=== PATIENT | female | born 1990 | race Caucasian/White ===

== ENCOUNTER 2018-07-02 15:05 | Emergency (ER) | payer SELFPAY ==
[~2018-07-02] VITALS: Ht 165.1 cm; Wt 79.5 kg
[2018-07-02 15:12] VITALS: Ht 165.1 cm; Wt 79.5 kg
[2018-07-02] MEDS ORDERED: SYNTHROID25 MCG PO (15:14)
[2018-07-02] MEDS ORDERED: TORADOL10 MG PO (18:03)
[2018-07-02] MEDS ORDERED: CLEOCIN HCL300 MG PO (18:03)
[2018-07-02 18:40] VITALS: BP 105/54
== END 2018-07-02 18:40 | disposition home or self-care (01) ==
LOC: D.ER 15:05
DX: L02.416 Cutaneous abscess of left lower limb (principal); F17.200 Nicotine dependence, unspecified, uncomplicated

== ENCOUNTER 2018-07-19 17:47 | Emergency (ER) | payer SELFPAY ==
[~2018-07-19] VITALS: Ht 165.1 cm; Wt 79.5 kg
[~2018-07-19 17:47] MED LIST: CLEOCIN HCL300 MG PO; SYNTHROID25 MCG PO; TORADOL10 MG PO
[2018-07-19 18:24] VITALS: Ht 165.1 cm; Wt 79.5 kg
[2018-07-19 19:07] LABS: APPEARANCE CLEAR (CLEAR); BILIRUBIN NEGATIVE (NEGATIVE); COLOR YELLOW (YELLOW); GLUCOSE NEGATIVE (NEGATIVE); KETONE NEGATIVE (NEGATIVE); NITRITE NEGATIVE (NEGATIVE); PROTEIN NEGATIVE (NEGATIVE); SPECIFIC GRAVITY 1.015 (1.005-1.020); UROBILINOGEN NORMAL (NORMAL)
[2018-07-19 19:08] LABS: HCG URINE NEGATIVE (NEGATIVE)
[2018-07-19] MEDS ORDERED: ZOFRAN4 MG PO (19:56)
[2018-07-19 20:21] VITALS: BP 128/89
== END 2018-07-19 20:22 | disposition home or self-care (01) ==
LOC: D.ER 17:47
PROVIDERS: Emergency Medicine
DX: R51 Headache (principal); R11.0 Nausea; R42 Dizziness and giddiness; F17.200 Nicotine dependence, unspecified, uncomplicated

== ENCOUNTER 2018-11-17 14:25 | Emergency (ER) | payer SELFPAY ==
[~2018-11-17] VITALS: Ht 165.1 cm; Wt 77.3 kg
[~2018-11-17 14:25] MED LIST changes: +ZOFRAN4 MG PO
[2018-11-17 14:29] VITALS: Ht 165.1 cm; Wt 77.3 kg
[2018-11-17 15:31] VITALS: BP 124/72
== END 2018-11-17 15:32 | disposition home or self-care (01) ==
LOC: D.ER 14:25
DX: S30.861A Insect bite (nonvenomous) of abdominal wall, initial encounter (principal); W57.XXXA Bitten or stung by nonvenomous insect and other nonvenomous arthropods, initial encounter; Y93.89 Activity, other specified; Y92.89 Other specified places as the place of occurrence of the external cause

== ENCOUNTER 2019-06-07 02:23 | Outpatient (CLI) | payer SELFPAY ==
[2018-11-17 14:29] VITALS: BMI 28.3
[2019-06-07 03:04] LABS: APPEARANCE CLEAR (CLEAR); BILIRUBIN NEGATIVE (NEGATIVE); COLOR STRAW (YELLOW); GLUCOSE NEGATIVE (NEGATIVE); KETONE SMALL mg/dL (NEGATIVE); NITRITE NEGATIVE (NEGATIVE); PROTEIN 1+ mg/dL (NEGATIVE); UROBILINOGEN NORMAL (NORMAL)
[2019-06-07 03:09] LABS: UDS - AMPHET NEGATIVE QUAL (NEGATIVE); UDS - BARB NEGATIVE QUAL (NEGATIVE); UDS - BENZO NEGATIVE QUAL (NEGATIVE); UDS - COCAINE NEGATIVE QUAL (NEGATIVE); UDS - OPIATE POSITIVE QUAL (NEGATIVE); UDS - PCP NEGATIVE QUAL (NEGATIVE); UDS - THC NEGATIVE QUAL (NEGATIVE)
[2019-06-10 09:10] LABS: UDSC - AMPHET Negative ng/mL (Cutoff=1000); UDSC - BARB Negative ng/mL (Cutoff=300); UDSC - BENZO Negative ng/mL (Cutoff=300); UDSC - COC Negative ng/mL (Cutoff=300); UDSC - METH Negative ng/mL (Cutoff=300); UDSC - OPIATES Negative (Cutoff=300); UDSC - PCP Negative ng/mL (Cutoff=25); UDSC - PROPOXY Negative ng/mL (Cutoff=300); UDSC - THC Negative ng/mL (Cutoff=50)
== END 2019-06-07 03:42 | disposition home or self-care (01) ==
LOC: D.LDO 02:23
PROVIDERS: ATTEND Obstetrics & Gynecology
DX: O26.893 Other specified pregnancy related conditions, third trimester (principal); Z3A.34 34 weeks gestation of pregnancy; R10.2 Pelvic and perineal pain

== ENCOUNTER 2019-07-16 23:44 | Inpatient (IN) | payer MEDICAID ==
[~2019-07-16] VITALS: Ht 165.1 cm; Wt 92.1 kg
[2019-07-17 01:10] VITALS: BP 119/59; Ht 165.1 cm; Wt 92.1 kg
[2019-07-17 01:14] LABS: HEMATOCRIT 38.6 % (36.0-48.0); HEMOGLOBIN 12.6 g/dL (12-16); MCH 29.9 pg (26.0-34.0); MCHC 32.6 g/dL (31.0-37.0); MCV 91.5 fL (80.0-100.0); MEAN PLATELET VOLUME 10.1 fL (7.4-10.4); RBC 4.22 10x6/uL (4.00-5.40); RDW 13.5 % (11.5-14.5); WBC 14.5 10x3/uL (4.8-10.8)
[2019-07-17 02:51] LABS: APPEARANCE HAZY (CLEAR); BACTERIA NONE SEEN /hpf (NEGATIVE); BILIRUBIN NEGATIVE (NEGATIVE); COLOR YELLOW (YELLOW); EPITHELIAL CELLS RARE /hpf (0-5); GLUCOSE NEGATIVE (NEGATIVE); KETONE NEGATIVE (NEGATIVE); NITRITE NEGATIVE (NEGATIVE); PROTEIN NEGATIVE (NEGATIVE); UDS - AMPHET NEGATIVE QUAL (NEGATIVE); UDS - BARB NEGATIVE QUAL (NEGATIVE); UDS - BENZO NEGATIVE QUAL (NEGATIVE); UDS - COCAINE NEGATIVE QUAL (NEGATIVE); UDS - OPIATE POSITIVE QUAL (NEGATIVE); UDS - PCP NEGATIVE QUAL (NEGATIVE); UDS - THC NEGATIVE QUAL (NEGATIVE); UROBILINOGEN NORMAL (NORMAL); WHITE CELLS - URINE 0-5 /hpf (NEGATIVE)
[2019-07-17 07:11] VITALS: BP 111/55
--- NOTE | 2019-07-17 07:11 | NUR ---
THIS RN TO ROOM FOR BEDSIDE SHIFT REPORT AND SHIFT ASSESSMENT. SHIFT ASSESSMENT COMPLETED, VSS, SEE FLOWSHEET FOR DOC. PT C/O WORSENING CRAMPING AND PERINEAL PAIN, RATES PAIN 6/10, REQUESTING ADDITIONAL PAIN MED. WILL ADMIN ORDERED. FF, ML, U/1. SMALL RUBRA LOCHIA NOTED, NO CLOTS EXPELLED WITH FUNDAL MASSAGE. MOD TO SEVERE PERINEAL AND LABIAL SWELLING NOTED. ICE PACK APPLIED. PT DENIES URGE TO VOID AT THIS TIME. BLADDER NON-DISTENDED. WILL REASSESS. PEDAL PULSES 2+ BILAT, MILD GENERALIZED EDEMA TO LE BILAT. PT VISITING WITH FAMILY AT THIS TIME. WILL RETURN TO ADMIN PRN TORADOL.
--- NOTE | 2019-07-17 07:48 | NUR ---
PT ADMIN PRN TORADOL ORDERED FOR PAIN, SEE EMAR FOR DOC. PT PROVIDED WITH FRESH ICE WATER. PT DENIES FURTHER NEEDS AT THIS TIME. SRUx2, CL IN REACH.
--- NOTE | 2019-07-17 08:10 | NUR ---
THIS RN TO ROOM FOR PT CHECK. PT STATES SHE FEELS URGE TO VOID. PT STILL HAS LIMITED ROM TO LE DUE TO POST EPIDURAL ANESTHESIA. PT PLACED IN BEDPAN, VOIDS LARGE AMOUNT UNMEASURED URINE. PERINEAL CARE DONE. FF, ML, U/1. SMALL RUBRA LOCHIA WITHOUT CLOTS. NEW ICE PACK PLACED TO PERINEUM. PT REPORTS DECREASE IN PAIN AFTER TAKING TORADOL, DENIES FURTHER NEEDS. SRUx2, CL IN REACH. WILL CONT TO MONITOR.
--- NOTE | 2019-07-17 09:24 | NUR ---
THIS RN TO ROOM FOR IV BEEPING. IV INFUSION OF PITOCIN NOTED TO BE COMPLETE. FF, ML, U/1. SMALL RUBRA LOCHIA NOTED. PT C/O FEELING A "GUSH" OF BLOOD. PT REASSURED LOCHIA AMOUNT IS NORMAL. NEW ICE PACK PLACED TO PERINEUM FOR WORSENING SWELLING. EPIDURAL CATH REMOVED PER PT REQUEST, WITHOUT INCIDENT, CATH TIP INTACT. NO SWELLING, BRUISING, OR DRAINAGED NOTED TO EPIDURAL SITE. BANDAID APPLIED. PT INSTRUCTED TO NOT GET OUT OF BED WITHOUT ASSIST FROM RN. UNDERSTANDING VERBALIZED. SRUx2, CL IN REACH. WILL CONT TO MONITOR.
--- NOTE | 2019-07-17 10:00 | NUR ---
RECIEVED PT AT 1000.
--- NOTE | 2019-07-17 10:00 | NUR ---
REPORT TO TONJA CRANDALL TO ASSUME CARE OF PT.
--- NOTE | 2019-07-17 10:15 | NUR ---
PT A&A W/ NO C/O AT THIS TIME. PT ASSISTED UP TO RR. PT W/ STEADY GAIT TO RR & ABLE TO VOID W/O DIFFICULTY 350ML. PT PERFORMED OWN SUKH CARE W/ SUKH BOTTLE FILLED W/ BETADINE & WATER. PT'S LINEN CHANGED AT THIS TIME. PT'S BLEEDING SMALL. TEMP 98.2.
--- NOTE | 2019-07-17 11:00 | NUR ---
PT MOVED TO ROOM 1273 AT THIS TIME. PT AMBULATED TO ROOM W/ STEADY GAIT. PT W/ NO C/O AT THIS TIME.
--- NOTE | 2019-07-17 11:44 | NUR ---
pt given dcheduled tylenol at this time. pt also up to rr w/ steady gait assisted by fob.
[2019-07-17 12:00] VITALS: BP 106/59
--- NOTE | 2019-07-17 12:00 | NUR ---
pt sitting up holding . pt w/ no c/o at this time. pt given mmr info sheet. pt states will let rn know if she wants mmr vaccine.
--- NOTE | 2019-07-17 12:00 | NUR ---
pt back to bed. voided w/o difficulty. bleeding scant. v/s stable.
--- NOTE | 2019-07-17 12:13 | NUR ---
DR COFFEY NOTIFIED OF PT REQUEST TO RESTART SYNTHROID. ORDER RCVD TO START PT ON HER DAILY DOSE OF SYNTHROID SHE NORMALLY TAKES, 25MCG PO, FIRST DOSE NOW.
--- NOTE | 2019-07-17 13:17 | NUR ---
PT UP TO RR & VOIDED W/O DIFFICULTY BLEEDING SMALL. PT W/ NO C/O AT THIS TIME.
--- NOTE | 2019-07-17 13:33 | NUR ---
PT GIVEN TORADOL SEE EMAR. PT HAS ICE PACK ALSO FOR PERINEUM.
--- NOTE | 2019-07-17 14:00 | NUR ---
PT ASK THAT INFANT GO TO [facility] SO SHE CAN REST. TO NBN AT THIS TIME.
--- NOTE | 2019-07-17 14:50 | NUR ---
INFANT RETURNED TO MOTHER. MOTHER SITTING UP AWAKE W/ NO S/S OF DISTRESS AT THIS TIME.
[2019-07-17 16:00] VITALS: BP 106/56
--- NOTE | 2019-07-17 16:00 | NUR ---
PT SITTING UP IN BED. PT IN STABLE CONDITION.
--- NOTE | 2019-07-17 17:27 | NUR ---
SCHEDULED TYLENOL GIVEN SEE EMAR. PT STATES SHE HAS NO PAIN AT THIS TIME.
--- NOTE | 2019-07-17 18:30 | NUR ---
PT UP WALKING IN ROOM. PT JUST GOT OUT OF THE SHOWER. PT W/ NO C/O AT THIS TIME.
--- NOTE | 2019-07-17 19:15 | NUR ---
BEDSIDE REPORT REC'D PT REC'D SITTING IN HIGH FOWLERS POSITION CONVERSING WITH SIGNIFICANT OTHER. C/O BACK PAIN 2-09/13, DENIES NEED FOR INTERVENTION AT THIS TIME. REPORTS THAT SHE JUST GOT OUT OF SHOWER. DENIES NEEDS. POC DISCUSSED, VERBALIZES UNDERSTANDING AND AGREEMENT AND DENIES QUESTIONS. BED IN LOW POSITION WITH SRUP X2. CALL LIGHT AND PHONE WITHIN REACH. WILL CONTINUE TO MONITOR.
[2019-07-17 20:26] VITALS: BP 108/63
--- NOTE | 2019-07-17 20:26 | NUR ---
SHIFT ASSESSMENT COMPLETED PER FLOWSHEET. VSS. FUNDUS FIRM, MIDLINE AND U1 WITH SCANT RUBRA LOCHIA, NO CLOTS NOTED. C/O BACK PAIN 11/13, TORADOL OFFERED AND REFUSED, STATES THAT TORADOL "UPSETS HER STOMACH." REPORTS THAT SHE CAN TAKE MOTRIN, WILL DISCUSS WITH DR. COFFEY. EDUCATED PER FLOWSHEET. FOB BOTTLE FEEDING . DENIES NEEDS AT THIS TIME. BED IN LOW POSITION WITH SRUP X2. CALL LIGHT AND PHONE WITHIN REACH. WILL CONTINUE TO MONITOR.
--- NOTE | 2019-07-17 20:34 | NUR ---
SPOKE WITH DR. COFFEY REGARDING CHANGING TORADOL TO MOTRIN. ORDERS REC'D.
--- NOTE | 2019-07-17 20:59 | NUR ---
C/O BACK DISCOMFORT 11/13, CONSTANT ACHE. MOTRIN GIVEN PER ORDER AND PT REQUEST. ICE WATER PROVIDED. IN FOB ARM'S. DENIES ADDITIONAL NEEDS. BED IN LOW POSITION WITH SRUP X2. CALL LIGHT AND PHONE WITHIN REACH. WILL CONTINUE TO MONITOR.
--- NOTE | 2019-07-17 21:35 | NUR ---
PAIN REASSESSMENT COMPLETED. 07/16. DENIES NEEDS. STATES THAT SHE IS GOING TO GO TO BED AND REST. QUESTIONS REGARDING IF INFANT CAN REMAIN IN ROOM ANSWERED, VERBALIZES UNDERSTANDING. REINFORCED THAT IF SHE AND FOB ARE SLEEPING WITH IN ROOM, MUST SLEEP IN OPEN CRIB AND NOT IN BED WITH HER OR COUCH WITH FOB, VERBALIZES UNDERSTANDING. BED IN LOW POSITION WITH SRUP X2. CALL LIGHT AND PHONE WITHIN REACH. FOB REMAINS AT BEDSIDE, SUPPORTIVE AND ATTENTIVE TO PT AND INFANT NEEDS. WILL CONTINUE TO MONITOR.
--- NOTE | 2019-07-18 00:13 | NUR ---
PT C/O CONGESTION AND SORE THROAT, REQUESTS MEDS. WILL NOTIFY DR. COFFEY ONCE HE IS OUT OF OR.
--- NOTE | 2019-07-18 00:44 | NUR ---
DR. COFFEY NOTIFIED OF PT REQUEST FOR MEDICATION FOR CONGESTION AND SORE THROAT. ORDERS REC'D.
--- NOTE | 2019-07-18 00:49 | NUR ---
MANNY, DIRECTOR OF DEVELOPMENT AND MARKETING NOTIFIED OF NEED FOR SUEDAFED AND MED NOT BEING AVAILABLE ON UNIT BUT IS AVAILABLE ON MS PER [facility] [facility] AND NEED FOR CHLORASEPTIC, PER MANNY SHE IS NOT SURE THAT CHLORASEPTIC IS STOCKED IN THE MED ROOM SHE HAS ACCESS TOO.
--- NOTE | 2019-07-18 00:54 | NUR ---
DENIES PAIN AND REFUSES TYLENOL. ICE WATER AND COKE PROVIDED PER PT REQUEST. BACK TO NBN PER PT REQUEST. DENIES ADDITIONAL NEEDS. BED IN LOW POSITION WITH SRUP X2. CALL LIGHT AND PHONE WITHIN REACH. WILL CONTINUE TO MONITOR.
--- NOTE | 2019-07-18 01:28 | NUR ---
CHLORASEPTIC AND SUEDAFED GIVEN PER ORDER. PT EDUCATED ON MED, VERBALIZES UNDERSTANDING AND DENIES QUESTIONS. STATES THAT SHE IS GOING BACK TO SLEEP TO GET SOME REST. BED IN LOW POSITION WITH SRUP X2. CALL LIGHT AND PHONE WITHIN REACH. SIGNIFICANT OTHER RESTING ON COUCH AT BEDSIDE.
--- NOTE | 2019-07-18 03:02 | NUR ---
RESTING QUIETLY LAYING ON RIGHT SIDE WITH EYES CLOSED. RESP REGULAR AND UNLABORED, NO S/S OF DISTRESS NOTED. SIGNIFICANT OTHER RESTING ON COUCH AT BEDSIDE. BED IN LOW POSITION WITH SRUP X2. CALL LIGHT AND PHONE WITHIN REACH. REMAINS IN NBN. WILL CONTINUE TO MONITOR.
--- NOTE | 2019-07-18 05:09 | NUR ---
C/O OF BACK AND L HIP DISCOMFORT 10/14. SCHEDULED TYLENOL GIVEN PER ORDER AND MOTRIN PER ORDER AND REQUEST. SCANT RUBRA LOCHIA NOTED TO PERIPAD LAST CHANGED. REPORTS THAT SHE IS VOIDING AND PASSING FLATUS WITHOUT DIFFICULTY. ICE WATER PROVIDED. DENIES ADDITIONAL NEEDS. BED IN LOW POSITION WITH SRUP X2. CALL LIGHT AND PHONE WITHIN REACH. SIGNIFICANT OTHER SLEEPING ON COUCH AT BEDSIDE. WILL CONTINUE TO MONITOR.
--- NOTE | 2019-07-18 05:55 | NUR ---
TEARFUL, REPORTS THAT PAIN TO LOWER BACK HAS INCREASED. PAIN /. WARM BLANKETS PROVIDED, ENCOURAGED TO MOVE AND CHANGE POSITION ALSO. WILL CONTINUE TO MONITOR. BED IN LOW POSITION WITH SRUP X2. CALL LIGHT AND PHONE WITHIN REACH.
--- NOTE | 2019-07-18 06:31 | NUR ---
SITTING ON EDGE OF BED, REPORTS THAT PAIN IS BETTER SINCE HAVING WARM BLANKETS PLACED ON BACK AND MOVING AROUND, NOW 09/13, DENIES NEED FOR ADDITIONAL INTERVENTION. WILL CONTINUE TO MONITOR. BED IN LOW POSITION. RESTING QUIETLY IN OPEN CRIB. SRUP X2. CALL LIGHT AND PHONE WITHIN REACH.
--- NOTE | 2019-07-18 06:52 | NUR ---
SYNTHROID GIVEN PER ORDER. ICE WATER PROVIDED. DENIES ADDITIONAL NEEDS. BED IN LOW POSITION WITH SRUP X2. CALL LIGHT AND PHONE WITHIN REACH.
--- NOTE | 2019-07-18 07:00 | NUR ---
REPORT RECEIVED FROM Maninder BARONE RN.
[2019-07-18 08:30] VITALS: BP 113/62
--- NOTE | 2019-07-18 08:30 | NUR ---
ASSESSMENT COMPLETED. SEE FLOWSHEET. S/0 AT BEDSIDE. IN ROOM HELD BY FEMALE VISITOR.
[2019-07-18 10:02] VITALS: BP 113/62
--- NOTE | 2019-07-18 10:30 | NUR ---
DR. COFFEY HERE TO SEE PATIENT.
--- NOTE | 2019-07-18 13:30 | NUR ---
REVIEWED DISCHRGE INSTRUCTIONS AND ROOMING IN POLICY WITH PATIENT. STATES UNDERSTANDING.
== END 2019-07-18 14:00 | disposition home or self-care (01) | DRG 807 ==
LOC: D.LDO 23:44 → D.LD 23:45 → D.LDO 07-17 00:28 → D.LD 07-17 13:35
PROVIDERS: ADMIT Obstetrics & Gynecology; ATTEND Obstetrics & Gynecology
PROC: 10E0XZZ Delivery of Products of Conception, External Approach (ICD-10-PCS; principal; 2019-07-17)
DX: O66.0 Obstructed labor due to shoulder dystocia (principal); Z37.0 Single live birth; O99.334 Smoking (tobacco) complicating childbirth; F17.200 Nicotine dependence, unspecified, uncomplicated; Z3A.39 39 weeks gestation of pregnancy; O70.0 First degree perineal laceration during delivery; O76 Abnormality in fetal heart rate and rhythm complicating labor and delivery